=== PATIENT | male | born 1975 | race Caucasian/White ===

== ENCOUNTER 2021-04-27 17:11 | Emergency (ER) | payer OTHER ==
[~2021-04-27] VITALS: Ht 185.4 cm; Wt 98.6 kg
[2021-04-27 17:12] VITALS: BP 126/68
[2021-04-27] MEDS ORDERED: XARE15TA PO ×2 (17:40)
[2021-04-27] MEDS ORDERED: OXYC1TAB23 PO (17:40)
[2021-04-27] MEDS ORDERED: SENN-23 PO (17:40)
[2021-04-27] MEDS ORDERED: FAMO20TA PO (17:40)
[2021-04-27 18:21] VITALS: O2SAT 94
== END 2021-04-27 19:05 | disposition home or self-care (01) ==
LOC: M ED 17:11
DX: I26.99 Other pulmonary embolism without acute cor pulmonale (principal); I82.602 Acute embolism and thrombosis of unspecified veins of left upper extremity; Z79.01 Long term (current) use of anticoagulants

== ENCOUNTER → 2021-06-09 | Outpatient (CLI) | payer OTHER ==
[~2021-06-09] MED LIST: FAMO20TA PO; OXYC1TAB23 PO; SENN-23 PO; XARE15TA PO
--- NOTE | 2021-06-10 14:57 | SLEEPCENT ---
DATE: 06/09/2021 ORDERED BY: Fermin Sun DO [facility] Nocturnal polysomnography was performed for evaluation of sleep physiology in this patient with a history of snoring, morning headaches, and a nonrestorative sleep. Seven hours and 35 minutes of data were reviewed. There were 356.5 minutes of sleep identified. Sleep latency was mildly prolonged at 24.5 minutes. REM latency was normal at 81 minutes. Sleep architecture was good with four REM cycles. Overall sleep efficiency was 80.7%. The electrocardiogram showed a sinus rhythm with an average heart rate of 48 beats per minute. Rate ranged 40-60. EEG showed essentially normal waveforms for wake and sleep. There were only 5 respiratory events identified of 10 seconds in duration or greater for an apnea-hypopnea index within normal limits at 0.8. Snoring was however noted over the entire study. Arousals from respiratory events were seen 2.9 times per hour. There were no significant oxygen desaturations below 90%. Some minor limb activity was appreciated. Limb movement arousal index was 3.5. IMPRESSION: Normal nocturnal polysomnography with snoring.
== END ==
LOC: M SLEEP 20:00
PROVIDERS: ATTEND Internal Medicine Pulmonary Disease
DX: R06.83 Snoring (principal)

== ENCOUNTER → 2021-06-16 | Outpatient (CLI) | payer OTHER ==
--- NOTE | 2021-06-17 14:04 | ECHO ---
ECHOCARDIOGRAM DATE OF PROCEDURE: 06/16/2021 Age: 45 Gender: Male Height: 71 inches Weight: 210 pounds Body Surface Area: 2.15 m2 PATIENT LOCATION: Outpatient. REFERRING PROVIDER: Fermin Sun DO. INDICATION: Multiple pulmonary emboli. MEASUREMENTS: 2D Measurements: RV 4.4 cm LV 4.3 cm Septum 1.2 cm Posterior wall 1.2 cm Aortic Root 3.6 cm LA 4.2 cm LVEF 65% Doppler Measurements: AV 1.17 m/s LVOT 1.03 m/s LVOT diameter 2.1 cm MV-E 59, A 44, EA ratio 1.3 Early mitral deceleration time 269 msec E prime medial 7.2, A prime medial 9.7, E prime lateral 8.8 Average E/E prime ratio 7.4/PCWP 11 mmHg PV - 0.8 m/s Pulmonary artery acceleration time 120 msec RVSP 45 mmHg IVC 2.5 cm COMMENTS: Sinus bradycardia without intraventricular conduction disturbance. M-mode and 2-dimensional echocardiography was performed with pulse, continuous wave, color flow, and tissue Doppler studies. Borderline concentric left ventricular hypertrophy with normal wall motion. Mildly dilated left atrium with grade 2 LV diastolic dysfunction but currently normal estimated mean left atrial pressure. Mildly dilated right heart chambers with normal wall motion and Doppler evidence of at least mild to moderate pulmonary hypertension. At least mildly dilated inferior vena cava with slightly reduced respiratory collapse suggesting central venous pressure at least upper limits of normal at 10 mmHg. Normal aortic dimensions. Normal appearing aortic valve and aortic valve function. Normal appearing mitral valvular apparatus with adequate leaflet excursion and no posterior systolic buckling. No more than trace to very mild mitral insufficiency. Normal appearing tricuspid valve with trace to very mild insufficiency. No apparent intracardiac mass or pericardial effusion. MTDD
== END ==
LOC: M CARPUL 10:06
PROVIDERS: ATTEND Internal Medicine Pulmonary Disease
DX: I26.94 Multiple subsegmental thrombotic pulmonary emboli without acute cor pulmonale (principal); R00.1 Bradycardia, unspecified

== ENCOUNTER → 2022-01-21 | Outpatient (CLI) | payer OTHER ==
[~2022-01-21] MED LIST changes: +PROHANCE 279.3MG/ML 15ML VIAL ONE; +PROHANCE 279.3MG/ML 5ML VIAL ONE
== END ==
LOC: M PLAIMG 08:58
PROVIDERS: ATTEND Physician Assistant
DX: M25.562 Pain in left knee (principal); M94.262 Chondromalacia, left knee; M76.52 Patellar tendinitis, left knee
CPT/HCPCS: 73723; A9576